=== PATIENT | female | born 1985 | race African-American/Black ===

== ENCOUNTER → 2016-12-17 | Outpatient (CLI) | payer BC ==
[~2016-12-17] MED LIST: PREN-39 PO; RANI150T9 PO
[2016-12-17 08:56] LABS: ADD SCAN DIFF NO
[2016-12-17 09:05] LABS: ADD UMIC YES; URINE BILIRUBIN (Dip) NEGATIVE (NEGATIVE); URINE BLOOD (Dip) 1+ (NEGATIVE); URINE COLOR YELLOW (YELLOW); URINE KETONES (Dip) NEGATIVE (NEGATIVE); URINE LEUKOCYTE ESTERASE (Dip) NEGATIVE (NEGATIVE); URINE NITRITE (Dip) NEGATIVE (NEGATIVE); URINE TOTAL PROTEIN (Dip) TRACE (NEGATIVE); URINE UROBILINOGEN (Dip) 0.2 E.U./dL (0.1-1.0)
[2016-12-17 09:06] LABS: BASOPHILS % 0.3 % (0.0-2.0); EOSINOPHILS # 0.1 10^3/ul (0.0-0.5); EOSINOPHILS % 1.5 % (0.0-7.0); HEMATOCRIT 31.8 % (37.0-47.0); HEMOGLOBIN 9.9 g/dl (12.0-16.0); LYMPHOCYTES # 1.6 10^3/ul (0.8-2.9); MEAN CORPUSCULAR HEMOGLOBIN 26.5 pg (29.0-33.0); MEAN CORPUSCULAR HGB CONC 31.1 g/dl (32.0-37.0); MEAN CORPUSCULAR VOLUME 85.3 fl (82.0-101.0); MEAN PLATELET VOLUME 11.1 fl (7.4-10.4); MONOCYTE # 0.6 10^3/ul (0.3-0.9); MONOCYTES % 10.1 % (0.0-11.0); NEUTROPHIL # 3.7 10^3/ul (1.6-7.5); NEUTROPHILS % 61.6 % (39.0-77.0); PLATELET COUNT 162 10^3/UL (140-415); RED BLOOD COUNT 3.73 10^6/ul (4.20-5.40)
[2016-12-17 09:26] LABS: BACTERIA,URINE MANY; MUCUS,URINE MANY
[2016-12-18 16:17] LABS: RUBELLA ANTIBODY - IGG 5.64 index
== END | disposition home or self-care (01) ==
LOC: LAB 07:53
PROVIDERS: ATTEND Obstetrics & Gynecology
DX: Z34.90 Encounter for supervision of normal pregnancy, unspecified, unspecified trimester (principal)
CPT/HCPCS: 81001; 84443; 85025; 86592; 86703; 86762; 86803; 86850; 86900; 86901; 87340

== ENCOUNTER → 2017-01-14 | Outpatient (CLI) | payer BC | END | disposition home or self-care (01) | LOC: LAB 07:37 | PROVIDERS: ATTEND Obstetrics & Gynecology | DX: Z32.00 Encounter for pregnancy test, result unknown (principal) | CPT/HCPCS: 87086 ==

== ENCOUNTER → 2017-03-30 | Outpatient (CLI) | payer BC ==
[2017-03-30 08:44] LABS: BASOPHILS % 0.1 % (0.0-2.0); EOSINOPHILS # 0.1 10^3/ul (0.0-0.5); EOSINOPHILS % 1.5 % (0.0-7.0); HEMATOCRIT 27.2 % (37.0-47.0); HEMOGLOBIN 8.6 g/dl (12.0-16.0); LYMPHOCYTES % 26.8 % (15.0-51.0); MEAN CORPUSCULAR HEMOGLOBIN 25.6 pg (29.0-33.0); MEAN CORPUSCULAR HGB CONC 31.6 g/dl (32.0-37.0); MEAN PLATELET VOLUME 11.1 fl (7.4-10.4); MONOCYTE # 0.7 10^3/ul (0.3-0.9); MONOCYTES % 8.9 % (0.0-11.0); NEUTROPHIL # 4.6 10^3/ul (1.6-7.5); PLATELET COUNT 153 10^3/UL (140-415); RED BLOOD COUNT 3.36 10^6/ul (4.20-5.40); RED CELL DISTRIBUTION WIDTH 15.6 % (11.5-14.5); WHITE BLOOD COUNT 7.3 10^3/ul (4.8-10.8)
== END | disposition home or self-care (01) ==
LOC: LAB 08:18
PROVIDERS: ATTEND Obstetrics & Gynecology
DX: Z34.82 Encounter for supervision of other normal pregnancy, second trimester (principal)
CPT/HCPCS: 82950; 85025

== ENCOUNTER 2017-04-03 14:34 | Outpatient (CLI) | payer BC ==
[~2017-04-03] VITALS: Ht 180.3 cm; Wt 84.5 kg
[2017-04-03 15:06] VITALS: BP 102/54; PULSE 88; Ht 180.3 cm; Wt 84.5 kg
[2017-04-03] MEDS ORDERED: ONDA-43 PO (15:08)
[2017-04-03] MEDS ORDERED: TERBUTALINE 1 MG/ML INJ SC PRN (15:30)
[2017-04-03 16:10] LABS: ADD UMIC YES; UR ASCORBIC ACID NEGATIVE (NEGATIVE); UR BILIRUBIN (Dip) NEGATIVE (NEGATIVE); UR BLOOD (Dip) 1+ mg/dL (NEGATIVE); UR CLARITY CLEAR (CLEAR); UR COLOR YELLOW (YELLOW); UR GLUCOSE (Dip) 1+ mg/dL (NEGATIVE); UR KETONES (Dip) NEGATIVE (NEGATIVE); UR LEUKOCYTE ESTERASE (Dip) NEGATIVE Leu/ul (NEGATIVE); UR MUCUS MODERATE /HPF (NONE SEEN); UR NITRITE (Dip) NEGATIVE (NEGATIVE); UR RBC 7 /HPF (0-5); UR SPECIFIC GRAVITY (Dip) 1.032 (1.003-1.030); UR SQUAMOUS EPITHELIAL CELL FEW /HPF (FEW); UR TOTAL PROTEIN (Dip) 2+ mg/dl (NEGATIVE); UR UROBILINOGEN (Dip) 2+ mg/dL (NEGATIVE)
--- NOTE | 2017-04-03 16:21 | RADRPT ---
PROCEDURE: OB ultrasound, limited CLINICAL INDICATION: distress. labor. TECHNIQUE: Color and vale-scale ultrasound images of an intrauterine gestation were obtained. COMPARISON: None FINDINGS: A single live intrauterine gestation is identified in cephalic position with an estimated hear t rate of 141 beats per minute. The placenta is located posteriorly and has a grade II. The cervix measures 3.6 cm in length and appears closed. No evidence of previa or abruption identified. PÉREZ is normal at 14.1 cm. IMPRESSION: Single live intrauterine gestation in cephalic position. Closed cervix measuring 3.6 cm in length. PÉREZ of 14.1 cm. RPTAT: AA .Chapincito Nguyen MD, Date Time Electronically viewed and signed by .Chapincito Nguyen MD, MD on 04/03/2017 16:21 .P/
--- NOTE | 2017-04-03 18:11 | PN ---
Triage Information Date/Time Reason for visit: Uterine contractions Weeks of Gestation 27w 5d /Para Objective Vital Signs Date Time Temp Pulse Resp B/P Pulse Ox O2 Delivery O2 Flow Rate FiO2 04/03/17 15:06 98.2 88 102/54 Heart Rate Comments reactive Contractions: None Exam FFN negative Results/Medications Results 24 hrs Laboratory Tests Test 04/03/17 15:00 Urine Color YELLOW Urine Clarity CLEAR Urine pH 5.0 Urine Specific Spray 1.032 H Urine Ketones NEGATIVE Urine Nitrite NEGATIVE Urine Bilirubin NEGATIVE Urine Urobilinogen 2+ H Urine Leukocyte Esterase NEGATIVE Urine Microscopic RBC 7 H Urine Microscopic WBC 1 Urine Squamous Epithelial Cells FEW Urine Mucus MODERATE Urine Hemoglobin 1+ H Urine Glucose 1+ H Urine Total Protein 2+ H Fibronectin NEGATIVE Medications Current Medications Terbutaline Sulfate (Brethine) 0.25 mg ONCE PRN SC PAIN; Start 04/03/17 at 15: 30; Stop 04/04/17 at 15:29 Imaging Results CL 3.6cm, PÉREZ 14.1cm Disposition: Discharge Assessment/Plan 31 y/o at 27w 5d with no e/o ptl -discharge home with ptl precautions -urine sent for cx -f/u with OB DIONISIO MÉNDEZ Apr 03, 2017 18:11
--- NOTE | 2017-04-03 18:24 | TRIAGE ---
OB Triage Datetime Report Generated by CPN: 04/03/2017 18:24 Datetime: 04/03/2017 17:53 Stage of : OB Triage Datetime: 04/03/2017 17:44 Stage of : OB Triage Datetime: 04/03/2017 17:17 Labor Evaluation Frequency: 0 Monitor Mode: External Resting Tone [place]: Relaxed Heart Rate FHR Baseline Rate: 135 Monitor Mode: External US Variability: Moderate 6-25 bpm Accelerations: 10X10 Decelerations: None Category: Category I Pain Assessment Pain Scale: 4 Pain Presence: Intermittent Pain Type: Cramping Pain Location: Abdomen Pain Goal: 3 Pain Relief Measures: Comfort Measures Datetime: 04/03/2017 16:19 Labor Evaluation Frequency: 0 Monitor Mode: External Resting Tone [place]: Relaxed Heart Rate FHR Baseline Rate: 135 Monitor Mode: External US Variability: Moderate 6-25 bpm Accelerations: 10X10 Decelerations: None Category: Category I Pain Assessment Pain Scale: 0 Pain Presence: None/Denies Pain Type: N/A Pain Goal: 3 Pain Relief Measures: Comfort Measures Datetime: 04/03/2017 15:17 Stage of : OB Triage Datetime: 04/03/2017 15:14 Stage of : OB Triage Datetime: 04/03/2017 14:55 Stage of : OB Triage Assessment Type: Triage Maternal Assessment Level of Consciousness: Fully Conscious DTR's/Clonus: DTRs 2+; No Clonus Headache: Denies Blurred Vision: No Respiratory Effort: Unlabored; Regular Rhythm; Equal Expansion Breath Sounds, Left: Clear and Equal Breath Sounds, Right: Clear and Equal Nausea/Vomiting: Denies RUQ Epigastric Pain: Denies Facial Edema: None Temperature Route: Axillary Fall Risk Assessment History of Falling: (0) No Secondary Diagnosis: (0) No Ambulatory Aid: (0) Bedrest/Nurse Assist IV Therapy: (0) No Gait: (0) Normal/Bedrest/Immobile Mental Status: (0) Oriented to Own Ability Fall Score: 0 Fall Risk Score Definition: No Risk: No action required Labor Evaluation Frequency: 0 Monitor Mode: External Pattern: Normal: <= 5 Contractions in 10 Minutes Resting Tone [place]: Relaxed Heart Rate FHR Baseline Rate: 135 Monitor Mode: External US Variability: Moderate 6-25 bpm Decelerations: None Pain Assessment Pain Scale: 6 Pain Presence: Intermittent Pain Type: Cramping Pain Location: Abdomen Pain Goal: 3 Pain Relief Measures: Comfort Measures Datetime: 04/03/2017 14:53 Time of Arrival: 04/03/2017 14:32 EGA: 27.5 Arrived By: Ambulatory Arrived From: Home Chief Complaint: C/O UC'S SINCE 12, DENIES LEAKING OF FLUID OR BLEEDING Movement: Present Contractions: Irregular Rupture of Membranes: Denies Vaginal Bleeding: None Vaginal Discharge: Denies Recent Sexual Intercouse: Denies Abdominal Trauma: Not Applicable Patient Complaints: Cramping Time Provider Notified: 04/03/2017 15:17 Provider Notified: LOLA Initial Plan: MONITOR, U/A, BPP, CL, FFN, TERB PRN
== END 2017-04-03 18:20 | disposition home or self-care (01) ==
LOC: OBT 14:34 → L-D 14:39 → OBT 18:20
PROVIDERS: ATTEND Obstetrics & Gynecology
DX: O62.9 Abnormality of forces of labor, unspecified (principal); Z3A.27 27 weeks gestation of pregnancy
CPT/HCPCS: 76817; 76818; 81001; 82731; 87086; G0463

== ENCOUNTER 2017-06-27 20:12 | Outpatient (CLI) | END 2017-06-27 21:05 | disposition home or self-care (01) ==

== ENCOUNTER 2017-06-28 02:38 | Inpatient (IN) | payer BC ==
[~2017-06-28] VITALS: Ht 180.3 cm; Wt 90.8 kg
[~2017-06-28 02:38] MED LIST changes: +ONDA-43 PO
[2017-06-28 02:46] VITALS: BP 113/62; PULSE 58; RESP 18
[2017-06-28] MEDS ORDERED: LACTATED RINGER'S 1,000 ML IV PRN (02:48)
[2017-06-28] MEDS ORDERED: LACTATED RINGER'S 1,000 ML IV SCH (02:48)
[2017-06-28 02:50] VITALS: Ht 180.3 cm; Wt 90.8 kg
[2017-06-28] MEDS ORDERED: IBUPROFEN 600 MG TAB PO PRN (03:00)
[2017-06-28] MEDS ORDERED: METHYLERGONOVINE 0.2 MG INJ IM PRN ×2 (03:00→07:30)
[2017-06-28] MEDS ORDERED: OXYTOCIN 30 UNITS/LR 500 ML IV PRN ×2 (03:00→07:30)
[2017-06-28] MEDS ORDERED: HYDROCODONE/APAP (5/325) TAB PO PRN ×2 (03:00→07:30)
[2017-06-28] MEDS ORDERED: OXYCODONE/ACETAMINOPHEN (5/325) TAB PO PRN (03:00)
[2017-06-28] MEDS ORDERED: CARBOPROST 250 MCG INJ IM PRN ×2 (03:00→07:30)
[2017-06-28] MEDS ORDERED: LIDOCAINE 1% (MPF) 30 ML INJ INJ PRN (03:00)
[2017-06-28] MEDS ORDERED: OXYTOCIN 30 UNITS/LR 500 ML IV SCH ×4 (03:00→07:04)
[2017-06-28] MEDS ORDERED: MISOPROSTOL 200 MCG TAB PR PRN ×2 (03:00→07:30)
[2017-06-28 03:13] LABS: BASOPHILS % 0.3 % (0.0-2.0); EOSINOPHILS # 0.1 10^3/ul (0.0-0.5); EOSINOPHILS % 1.1 % (0.0-7.0); HEMATOCRIT 36.2 % (37.0-47.0); HEMOGLOBIN 11.6 g/dl (12.0-16.0); LYMPHOCYTES # 1.7 10^3/ul (0.8-2.9); LYMPHOCYTES % 27.2 % (15.0-51.0); MEAN CORPUSCULAR HEMOGLOBIN 27.4 pg (29.0-33.0); MEAN CORPUSCULAR VOLUME 85.6 fl (82.0-101.0); MEAN PLATELET VOLUME 11.2 fl (7.4-10.4); MONOCYTE # 0.7 10^3/ul (0.3-0.9); NEUTROPHIL # 3.6 10^3/ul (1.6-7.5); NEUTROPHILS % 59.1 % (39.0-77.0); PLATELET COUNT 148 10^3/UL (140-415); RED BLOOD COUNT 4.23 10^6/ul (4.20-5.40); RED CELL DISTRIBUTION WIDTH 17.9 % (11.5-14.5); WHITE BLOOD COUNT 6.2 10^3/ul (4.8-10.8)
[2017-06-28] MEDS ORDERED: AMPICILLIN 2 GM/NS (PMX) 100 ML ONE (03:14)
[2017-06-28] MEDS ORDERED: AMPICILLIN 2 GM/NS (PMX) 100 ML IV ONE (03:30)
[2017-06-28 03:31] LABS: INR 0.94; PROTIME 12.7 Sec (11.9-14.9)
[2017-06-28 03:32] LABS: PARTIAL THROMBOPLASTIN TIME 27.6 Sec (25.0-35.0)
[2017-06-28] MEDS: BUTORPHANOL 2 MG INJ IV PRN ×2 (03:32→05:33)
[2017-06-28] MEDS ORDERED: AMPICILLIN ONE (05:42)
[2017-06-28] MEDS ORDERED: SODIUM CHLORIDE ONE (05:42)
[2017-06-28] MEDS: LACTATED RINGER'S 1,000 ML IV* SCH ×3 (07:04→23:04)
--- NOTE | 2017-06-28 07:11 | LDN ---
Date/Time of Note Date/Time of Note DATE: 06/28/17 TIME: 07:08 Delivery Summary of a viable baby girl weighing 3250 grams or 7# 3 oz, 19.5" long, and with Apgars of 9/9. Weeks of Gestation 40w Placenta Delivered: Spontaneously Meconium: none Episiotomy: No Perineal laceration: 1 Laceration repair: First degree perineal and b/l labial lacerations repaired with 3-0 chromic. Anesthesia type: None Estimated blood loss: 150 Sponge & Needle done & correct: Yes All needle counts correct: Yes Any foreign bodies felt in the: No (vagina) Problems: Infant Delivery Information Sex Sex: female Apgars 1 Minute: 9 5 Minute: 9 Suctioning Nose & mouth suctioned at jaleesa: No Delee suction performed: No Umbilical Cord Umbilical cord with: 3 Vessels Cord presentations: no nuchal cord Cord Blood was obtained: Yes Mother & Baby Disposition Disposition Mom & Baby to Maternity; Good: Yes Baby to NICU: No ANSHUL DAVILA MD Jun 28, 2017 07:11
--- NOTE | 2017-06-28 07:14 | HP ---
Date/Time of Note Date/Time of Note DATE: 06/28/17 TIME: 07:11 OB - History Hx of Present Free Text/Dictation 31 y.o. with an IUP at 40 weeks came in labor and was 5 cm dilated. She had been in 5 hours earlier and was 3 cm at that time but had decided to go home. Estimated Due Date: Jun 28, 2017 : 2 Para: 1 Care: Good Care Ultrasounds: Normal mid trimester US Obstetrical Complications: None Medical Complications: None Past Family/Social History * Past Medical, Surgical, Family and Obstetric Histories reviewed from chart. Blood Type: B+ Rubella: immune RPR/VDRL: Negative GBS Status: Positive HBsAG: Negative OB Admission Exam Vital Signs Vital Signs Vital Signs Date Time Temp Pulse Resp B/P Pulse Ox O2 Delivery O2 Flow Rate FiO2 06/28/17 02:46 98.2 58 18 113/62 Room Air Physical Exam HEENT: WNL Heart: Rhythm Normal Lungs: Clear Abdomen: WNL Extremities: Normal Reflexes: Normal Cervical Dilatation: 5cm Effacement: 100% Station: -1 Membranes: Intact Amniotic Fluid: Clear Heart Rate: 130's Accelerations: Accelerations Present Decelerations: No Decelerations Varibility: Moderate Contractions on Admission: < 5 Minutes Apart Last 72 hours Lab Results CBC & BMP 06/28/17 02:55 OB Assessment/Plan Reason for admission: active labor Plan: Expectant Management Other plan: Pitocin as needed. Antibiotic GBS prophylaxis. ANSHUL DAVILA MD Jun 28, 2017 07:14
[2017-06-28] MEDS ORDERED: AMPICILLIN 1 GM/NS (PMX) 50 ML IV SCH (07:30)
[2017-06-28 09:15] VITALS: BP 117/58; PULSE 60; RESP 19
[2017-06-28] MEDS: IBUPROFEN 600 MG TAB PO SCH ×3 (11:44→23:58)
[2017-06-28] MEDS: LANOLIN 7 GM TUBE TOP PRN (11:45)
[2017-06-28 12:54] VITALS: BP 115/55; PULSE 59; RESP 18
[2017-06-28 16:00] VITALS: BP 112/63; PULSE 66; RESP 16
[2017-06-28 16:35] VITALS: BP 112/63; RESP 16
[2017-06-28 19:40] VITALS: BP 118/73; PULSE 70; RESP 19
[2017-06-29] MEDS: IBUPROFEN 600 MG TAB PO SCH ×4 (05:45→23:35)
[2017-06-29] MEDS: LACTATED RINGER'S 1,000 ML IV* SCH (07:04)
[2017-06-29 07:40] VITALS: BP 115/60; PULSE 65; RESP 16
[2017-06-29 09:03] LABS: BASOPHILS % 0.2 % (0.0-2.0); EOSINOPHILS # 0.1 10^3/ul (0.0-0.5); EOSINOPHILS % 1.1 % (0.0-7.0); HEMATOCRIT 34.2 % (37.0-47.0); HEMOGLOBIN 10.7 g/dl (12.0-16.0); LYMPHOCYTES # 1.9 10^3/ul (0.8-2.9); LYMPHOCYTES % 21.9 % (15.0-51.0); MEAN CORPUSCULAR HEMOGLOBIN 27.4 pg (29.0-33.0); MEAN CORPUSCULAR HGB CONC 31.3 g/dl (32.0-37.0); MEAN CORPUSCULAR VOLUME 87.7 fl (82.0-101.0); MEAN PLATELET VOLUME 11.7 fl (7.4-10.4); MONOCYTE # 0.7 10^3/ul (0.3-0.9); MONOCYTES % 8.8 % (0.0-11.0); NEUTROPHIL # 5.7 10^3/ul (1.6-7.5); NEUTROPHILS % 67.6 % (39.0-77.0); PLATELET COUNT 141 10^3/UL (140-415); RED CELL DISTRIBUTION WIDTH 17.8 % (11.5-14.5); WHITE BLOOD COUNT 8.4 10^3/ul (4.8-10.8)
[2017-06-29] MEDS ORDERED: INFLUENZA VIRUS VACCINE 0.5 ML SYG IM* ONE (13:00)
[2017-06-29 15:57] VITALS: BP 114/71; PULSE 64; RESP 17
[2017-06-29 19:20] VITALS: BP 118/70; PULSE 62; RESP 18
[2017-06-29] MEDS: SENNA/DOCUSATE NA (8.6MG/50MG) TAB PO SCH (21:00)
--- NOTE | 2017-06-30 00:43 | QN ---
Documentation Comment Progress Note for 06/29/17 PPD #1 No c/o. w/o a problem. T=99 BP 118/70 Fundus is firm. Lochia minimal. Ext NT, 1+ edema. WBC 8.4 Hgb 10.7. Plts 141K P: continue care. Plan d/c 06/30. ANSHUL DAVILA MD Jun 30, 2017 00:43
[2017-06-30 03:55] VITALS: BP 121/79; PULSE 71; RESP 18
[2017-06-30] MEDS: IBUPROFEN 600 MG TAB PO SCH ×2 (05:36→11:11)
[2017-06-30 07:50] VITALS: BP 129/75; PULSE 52; RESP 16
[2017-06-30] MEDS: SENNA/DOCUSATE NA (8.6MG/50MG) TAB PO SCH (08:57)
[2017-06-30] MEDS ORDERED: DIPHTH/TET/ACEL PERTUSS (ADULT) 0.5 ML VIAL IM* ONE (09:00)
[2017-06-30] MEDS: LANOLIN 7 GM TUBE TOP PRN (11:24)
[2017-06-30] MEDS ORDERED: WITCH HAZEL/GLYCERIN PAD PR PRN (11:30)
[2017-06-30] MEDS ORDERED: BENZOCAINE 20% 56 ML SPRAY TOP PRN (11:30)
--- NOTE | 2017-06-30 12:21 | PD.PPDC ---
SPEECH CLINICIAN Discharge Instruction Condition Patient Condition: Good Diet Diet: Resume Regular Diet Activity/Restrictions Activity: Normal Activity May Shower Restrictions: No Sexual Activity Nothing in the Vagina No [place] No Tampons, douche Follow-up Follow-up with Physician: 6, Week/Weeks Return to clinic for FRAME FEEDER Instructions: Fever greater than 101 Chills Worsening abdominal pain Excessive Vaginal Bleeding OB Instructions: Breast Tenderness Depression ANSHUL DAVILA MD Jun 30, 2017 12:21
--- NOTE | 2017-06-30 12:22 | DS ---
Date/Time of Note Date/Time of Note DATE: 06/30/17 TIME: 12:21 Obstetrical Discharge Record Final Diagnosis Final Diagnosis: Term delivered Vaginal Delivery Obstetrical Delivery: Spontaneous Complications Augmentation: No Induction: No Condition on Discharge Physical Assessment Last Vitals: T=98.2 BP 129/75 Voiding: Yes Bowel Movement: Yes Breast: Soft, non-tender Fundus: Firm Calf Tenderness: No Patient Condition: Good ANSHUL DAVILA MD Jun 30, 2017 12:22
== END 2017-06-30 15:21 | disposition home or self-care (01) | DRG 775 ==
LOC: EDSTATUS 02:38 → L-D 02:40 → PP1 09:49
PROVIDERS: ADMIT Obstetrics & Gynecology; ATTEND Obstetrics & Gynecology
PROC: 10E0XZZ Delivery of Products of Conception, External Approach (ICD-10-PCS; principal; 2017-06-28)
PROC: 0HQ9XZZ Repair Perineum Skin, External Approach (ICD-10-PCS; 2017-06-28)
PROC: 3E033VJ Introduction of Other Hormone into Peripheral Vein, Percutaneous Approach (ICD-10-PCS; 2017-06-28)
DX: O48.0 Post-term pregnancy (principal); O70.0 First degree perineal laceration during delivery; Z3A.40 40 weeks gestation of pregnancy; Z37.0 Single live birth
CPT/HCPCS: 85025; 85610; 85730; 86592; 86850; 86900; 86901; 87340; 90686; 90715; J0290; J0595; J2590; J7120

== ENCOUNTER → 2018-07-16 | Outpatient (CLI) | payer BC | END | disposition home or self-care (01) | LOC: LAB 07:41 | PROVIDERS: ATTEND Obstetrics & Gynecology | DX: Z32.00 Encounter for pregnancy test, result unknown (principal) | CPT/HCPCS: 81001; 84443; 85025; 86592; 86703; 86762; 86803; 86850; 86900; 86901; 87340 ==

== ENCOUNTER → 2018-10-27 | Outpatient (CLI) | payer BC | END | disposition home or self-care (01) | LOC: LAB 02:14 | PROVIDERS: ATTEND Obstetrics & Gynecology | DX: O24.419 Gestational diabetes mellitus in pregnancy, unspecified control (principal); Z3A.00 Weeks of gestation of pregnancy not specified | CPT/HCPCS: 82950; 85025 ==

== ENCOUNTER 2019-01-15 05:57 | Inpatient (IN) | payer BC ==
[~2019-01-15] VITALS: Ht 180.3 cm; Wt 93.3 kg
[2019-01-15] MEDS ORDERED: RANI150T35 PO (06:16)
[2019-01-15] MEDS ORDERED: ONDA4TAB8 PO (06:16)
[2019-01-15] MEDS ORDERED: PREN-93 PO (06:16)
[2019-01-15 06:17] VITALS: BP 118/74; PULSE 94; RESP 18; Ht 180.3 cm; Wt 93.3 kg
[2019-01-15] MEDS ORDERED: LACTATED RINGER'S 1,000 ML IV SCH (08:24)
[2019-01-15] MEDS ORDERED: LIDOCAINE 1% (MPF) 30 ML INJ INJ PRN (08:30)
[2019-01-15] MEDS ORDERED: OXYTOCIN 30 UNITS/LR 500 ML IV PRN ×2 (08:30→17:30)
[2019-01-15] MEDS ORDERED: CARBOPROST 250 MCG INJ IM PRN ×2 (08:30→17:30)
[2019-01-15] MEDS ORDERED: MISOPROSTOL 200 MCG TAB PR PRN ×2 (08:30→17:30)
[2019-01-15] MEDS ORDERED: IBUPROFEN 600 MG TAB PO PRN (08:30)
[2019-01-15] MEDS ORDERED: METHYLERGONOVINE 0.2 MG INJ IM PRN ×2 (08:30→17:30)
[2019-01-15] MEDS ORDERED: AMPICILLIN 2 GM/NS (PMX) 100 ML IV ONE (08:30)
[2019-01-15] MEDS ORDERED: BUTORPHANOL 2 MG INJ IV PRN (08:30)
[2019-01-15] MEDS ORDERED: OXYTOCIN 30 UNITS/LR 500 ML IV SCH ×3 (08:30→12:00)
--- NOTE | 2019-01-15 08:40 | TRIAGE ---
OB Triage Datetime Report Generated by CPN: 01/15/2019 08:40 Datetime: 01/15/2019 08:16 Maternal Assessment Level of Consciousness: Keenly Alert, Responsive DTR's/Clonus: DTRs 2+ Headache: Denies Blurred Vision: No Nausea/Vomiting: Denies RUQ Epigastric Pain: Denies Facial Edema: None Labor Evaluation Frequency: 6-8 Monitor Mode: External Duration (sec)2399: 60 Quality: Moderate Pattern: Normal: <= 5 Contractions in 10 Minutes Resting Tone [place]: Relaxed Heart Rate FHR Baseline Rate: 150 Monitor Mode: External US FHR Baseline Changes: No Baseline Change Variability: Moderate 6-25 bpm Accelerations: 15X15 Decelerations: None Category: Category I Pain Assessment Pain Scale: 6 Pain Presence: Intermittent Pain Type: Contraction Pain Location: Abdomen Pain Goal: 5 Vaginal Exam Dilatation (cms): 5.0 Effacement (%): 80 Station: -2 Exam By: martha hutchins Membrane Status: Intact Vaginal Bleeding: None Cervix, Consistency: Soft Cervix, Position: Midposition Datetime: 01/15/2019 07:55 Assessment Type: Admission Assessment Vaginal Bleeding: None Maternal Assessment Level of Consciousness: Keenly Alert, Responsive DTR's/Clonus: DTRs 2+; No Clonus Headache: Denies Blurred Vision: No Respiratory Effort: Unlabored; Regular Rhythm; Equal Expansion Breath Sounds, Left: Clear and Equal Breath Sounds, Right: Clear and Equal Nausea/Vomiting: Denies RUQ Epigastric Pain: Denies Lower Extremities Edema: None Degree: None Upper Extremities Edema: None Degree: None Facial Edema: None Fall Risk Assessment History of Falling: (0) No Secondary Diagnosis: (0) No Ambulatory Aid: (0) Bedrest/Nurse Assist IV Therapy: (0) No Gait: (0) Normal/Bedrest/Immobile Mental Status: (0) Oriented to Own Ability Fall Score: 0 Fall Risk Score Definition: No Risk: No action required Labor Evaluation Frequency: 6-8 Duration (sec)2399: 60-70 Quality: Moderate Pattern: Normal: <= 5 Contractions in 10 Minutes Resting Tone [place]: Relaxed Heart Rate FHR Baseline Rate: 135 Variability: Moderate 6-25 bpm Accelerations: 15X15 Decelerations: None Category: Category I Pain Assessment Pain Scale: 6 Pain Presence: Intermittent Pain Type: Contraction Pain Location: Abdomen Pain Goal: 3 Vaginal Exam Dilatation (cms): 4.0 Effacement (%): 60 Station: -2 Membrane Status: Intact Amniotic Fluid Odor: None Datetime: 01/15/2019 07:01 Labor Evaluation Frequency: 8-9 Monitor Mode: External Duration (sec)2399: 60 Quality: Moderate Pattern: Normal: <= 5 Contractions in 10 Minutes Resting Tone [place]: Relaxed Heart Rate FHR Baseline Rate: 130 Monitor Mode: External US FHR Baseline Changes: No Baseline Change Variability: Moderate 6-25 bpm Accelerations: 15X15 Decelerations: None Category: Category I Pain Assessment Pain Scale: 6 Pain Presence: Intermittent Pain Type: Contraction Pain Location: Abdomen Pain Goal: 6 Membrane Status: Intact Datetime: 01/15/2019 07:00 Labor Evaluation Frequency: IRREG Monitor Mode: External Duration (sec)2399: 50-130 Quality: Mild Pattern: Normal: <= 5 Contractions in 10 Minutes Resting Tone [place]: Relaxed Heart Rate FHR Baseline Rate: 135 Variability: Moderate 6-25 bpm Accelerations: 15X15 Decelerations: None Category: Category I Datetime: 01/15/2019 06:12 Assessment Type: Triage Maternal Assessment Level of Consciousness: Keenly Alert, Responsive DTR's/Clonus: DTRs 2+; No Clonus Headache: Denies Blurred Vision: No Respiratory Effort: Unlabored; Regular Rhythm; Equal Expansion Breath Sounds, Left: Clear and Equal Breath Sounds, Right: Clear and Equal Nausea/Vomiting: Denies RUQ Epigastric Pain: Denies Lower Extremities Edema: None Degree: None Upper Extremities Edema: None Degree: None Facial Edema: None Fall Risk Assessment History of Falling: (0) No Secondary Diagnosis: (0) No Ambulatory Aid: (0) Bedrest/Nurse Assist IV Therapy: (0) No Gait: (0) Normal/Bedrest/Immobile Mental Status: (0) Oriented to Own Ability Fall Score: 0 Fall Risk Score Definition: No Risk: No action required Datetime: 01/15/2019 06:10 Time of Arrival: 01/15/2019 05:49 EGA: 39.1 Arrived By: Ambulatory Arrived From: Home Chief Complaint: ucs Movement: Present Contractions: Irregular Time Contractions Began: 01/15/2019 03:30 Contractions: 8-10 min Rupture of Membranes: Denies Vaginal Bleeding: None Vaginal Discharge: Denies Recent Sexual Intercouse: Denies Abdominal Trauma: Not Applicable Patient Complaints: Contractions Time Provider Notified: 01/15/2019 06:57 Provider Notified: JOSE GUADALUPE Initial Plan: NST, SVE Datetime: 01/15/2019 06:06 Pain Assessment Pain Scale: 7 Pain Presence: Intermittent Pain Type: Contraction Pain Location: Abdomen Pain Goal: 7 Pain Relief Measures: Comfort Measures Pain Assessment Comments: STATES PAIN IS TOLERABLE
[2019-01-15] MEDS: BUTORPHANOL 2 MG INJ IV PRN ×2 (09:16→12:40)
[2019-01-15] MEDS ORDERED: AMPICILLIN 1 GM/NS (PMX) 50 ML IV SCH (12:30)
--- NOTE | 2019-01-15 13:53 | PREAC ---
Date/Time of Note Date/Time of Note DATE: 01/15/19 TIME: 13:52 Anesthesia Eval and Record Evaluation Time Pre-Procedure Interview DATE: 01/15/19 TIME: 13:52 Age 33 Sex female NPO: 8 hrs Preoperative diagnosis intrauterine Planned procedure labor epidural Past Medical History Past Medical History: Includes Heme: Anemia : Gestational age: (39+) Surgery & Anesthesia Issues No known issue Meds Anticoagulation: No Beta Alexa within 24 hr: No Reason Beta Alexa not given: Pt. not on B-Alexa Reported Medications Ondansetron Hcl* (Zofran*) 4 Mg Tablet, 4 MG PO DAILY, TAB 01/15/19 Ranitidine Hcl* (Zantac*) 150 Mg Tablet, 150 MG PO HS, #30 TAB 01/15/19 Vit No.124/Iron/FA ( Vitamin Tablet) 1 Each Tablet, 1 EACH PO DAILY, TAB 01/15/19 Current Medications Lactated Ringer's 1,000 ml @ 125 mls/hr Q8H IV Last administered on 01/15/19at 08:42; Admin Dose 125 MLS/HR; Start 01/15/19 at 08:24 Ampicillin 50 ml @ 100 mls/hr Q4H IV Last administered on 01/15/19at 13:02; Admin Dose 100 MLS/HR; Start 01/15/19 at 12:30 Butorphanol Tartrate (Stadol) 1 mg Q2H PRN IV .PAIN SCALE 1-5 Last administered on 01/15/19at 12:40; Admin Dose 2 MG; Start 01/15/19 at 08:30 Butorphanol Tartrate (Stadol) 2 mg Q2H PRN IV .PAIN SCALE 6-10; Start 01/15/19 at 08:30 Lidocaine (Xylocaine 1% (Mpf)) 30 ml ONCE PRN INJ .EPISIOTOMY; Start 01/15/19 at 08:30 Oxytocin/Lactated Ringer's 500 ml @ 500 mls/hr ONCE POST IV ; Start 01/15/19 at 08:30 Oxytocin/Lactated Ringer's 500 ml @ 125 mls/hr POST IV ; Start 01/15/19 at 08:30 Ibuprofen (Motrin) 600 mg ONCE PRN PO .PAIN 1-5; Start 01/15/19 at 08:30 Oxytocin/Lactated Ringer's 500 ml @ 0 mls/hr ONCE PRN IV .VAGINAL BLEEDING; Start 01/15/19 at 08:30 Methylergonovine Maleate (Methergine) 0.2 mg ONCE PRN IM .VAGINAL BLEEDING; Start 01/15/19 at 08:30 Carboprost Tromethamine (Hemabate) 250 mcg ONCE PRN IM .VAGINAL BLEEDING; Start 01/15/19 at 08:30 Misoprostol (Cytotec) 1,000 mcg ONCE PRN LA .VAGINAL BLEEDING; Start 01/15/19 at 08:30 Oxytocin/Lactated Ringer's 500 ml @ 0 mls/hr Q0M IV Last administered on 01/15/19at 12:04; Admin Dose 1 MLS/HR; Start 01/15/19 at 12:00 Meds reviewed: Yes Allergies Coded Allergies: No Known Allergy (Unverified , 01/15/19) Allergies Reviewed: Yes Labs/Studies Labs Reviewed: Reviewed by anesthesiologist Result Diagram: 01/15/19 0720 Laboratory Tests 01/15/19 07:20 Blood Bank Test 01/15/19 07:20 Antibody Screen NEGATIVE Blood Type B POSITIVE Rh Immune Globulin Candidate NO test: N/A Pre-procedure Exam Last vitals Vital Signs Date Temp Pulse Resp B/P (MAP) Pulse Ox O2 O2 Flow FiO2 Time Delivery Rate 01/15/19 98.1 94 18 118/74 Room Air 06:17 (89) Airway: Adequate mouth opening, Adequate thyromental dist Mallampati: Mallampati II Teeth: Normal Lung: Normal Heart: Normal ASA Physical Status ASA physical status: 2 Emergency: None Planned Anesthetic Neuraxial: Epidural Planned Pain Management Epidural, Parenteral pain med Pre-operative Attestations Prior to commencing anesthesia and surgery, the patient was re-evaluated, there was verification of: *The patient's identity *The results of appropriate recent lab work and preoperative vital signs *The above evaluation not changing prior to induction *Anesthetic plan, risk benefits, alternative and complications discussed with patient/family; questions answered; patient/family understands, accepts and wishes to proceed. SFAIA VEGA MD Jan 15, 2019 13:53
[2019-01-15] MEDS ORDERED: DIPHENHYDRAMINE 50 MG INJ IV PRN (14:00)
[2019-01-15] MEDS ORDERED: ONDANSETRON 4 MG INJ IV PRN (14:00)
[2019-01-15] MEDS ORDERED: FENTAnyl 2MCG/ML-ROPIV 0.2% 100 ML BAG EPI SCH (14:00)
[2019-01-15] MEDS ORDERED: NALOXONE (0.4 MG/ML) INJ IV PRN (14:00)
--- NOTE | 2019-01-15 15:38 | LDN ---
Date/Time of Note Date/Time of Note DATE: 01/15/19 TIME: 15:35 Delivery Summary of normal male 8lb5oz Weeks of Gestation 39w1d Placenta Delivered: Spontaneously, Intact & Complete Meconium: none Episiotomy: No Perineal laceration: 1 Laceration repair: 000 ch gut Anesthesia type: Local Estimated blood loss: 100 Sponge & Needle done & correct: Yes All needle counts correct: Yes Any foreign bodies felt in the: No Infant Delivery Information Sex Infant Sex: male Apgars 1 Minute: 9 5 Minute: 9 10 Minute: 0 Suctioning Nose & mouth suctioned at jaleesa: Yes Delee suction performed: Yes Umbilical Cord Umbilical cord with: 3 Vessels Cord presentations: no nuchal cord Nuchal cord present X: 0 Cord Blood was obtained: Yes Mother & Baby Disposition Disposition Mom & Baby to Maternity; Good: Yes Mom transferred to: Other Baby to NICU: No (postpatum) ERMA SHI MD Jan 15, 2019 15:38
--- NOTE | 2019-01-15 15:45 | HP ---
Date/Time of Note Date/Time of Note DATE: 01/15/19 TIME: 15:38 OB - History Hx of Present Free Text/Dictation 33 y.o at 39w1d in labor with UC's 4-10 apart . had unevenful course. initial VE 4cm, then recked after ambulat become 5cm CAT I tracing GBS positive admitted for expectant management.with GBS prophylaxis. Chief Complaint: uc's Estimated Due Date: Jan 21, 2019 : 3 Para: 2 Spontaneous : 0 Therapeutic : 0 Care: Good Care Ultrasounds: Normal mid trimester US Obstetrical Complications: None Medical Complications: None Past Family/Social History * Past Medical, Surgical, Family and Obstetric Histories reviewed from chart. Blood Type: B+ Rubella: immune RPR/VDRL: Negative GBS Status: Positive HBsAG: Negative OB Admission Exam Vital Signs Vital Signs Vital Signs Date Temp Pulse Resp B/P (MAP) Pulse Ox O2 O2 Flow FiO2 Time Delivery Rate 01/15/19 98.1 94 18 118/74 Room Air 06:17 (89) Physical Exam HEENT: WNL Heart: Rhythm Normal Lungs: Clear, Equal Abdomen: WNL Extremities: Normal Reflexes: Normal Cervical Dilatation: 5cm Effacement: Other (80%) Station: -2 Membranes: Intact Amniotic Fluid: Unevaluable Heart Rate: 140's Accelerations: Accelerations Present Decelerations: No Decelerations Varibility: Moderate Contractions on Admission: < 5 Minutes Apart Intensity: Moderate Last 72 hours Lab Results CBC & BMP 01/15/19 07:20 OB Assessment/Plan Reason for admission: active labor Other Assessment: IUP 39w1d Plan: Expectant Management ERMA SHI MD Jan 15, 2019 15:45
[2019-01-15 17:00] VITALS: BP 127/66; PULSE 58; RESP 18
[2019-01-15] MEDS ORDERED: ZOLPIDEM 5 MG TAB PO PRN (17:30)
[2019-01-15] MEDS ORDERED: OXYCODONE/ASPIRIN (4.88/325) TAB PO PRN ×2 (17:30)
[2019-01-15] MEDS ORDERED: LANOLIN HPA 1 PKT TOP PRN (17:30)
[2019-01-15] MEDS ORDERED: BENZOCAINE 20% 56 ML SPRAY TOP PRN (17:30)
[2019-01-15] MEDS ORDERED: WITCH HAZEL/GLYCERIN PAD PR PRN (17:30)
[2019-01-15] MEDS: IBUPROFEN 600 MG TAB PO SCH ×2 (17:56→23:38)
[2019-01-15 18:00] VITALS: BP 116/58; PULSE 65; RESP 20
[2019-01-15 19:30] VITALS: BP 123/63; PULSE 75; RESP 19
[2019-01-15] MEDS: SENNA/DOCUSATE NA (8.6MG/50MG) TAB PO SCH (20:44)
[2019-01-15] MEDS: LACTATED RINGER'S 1,000 ML IV SCH (21:24)
[2019-01-16] VITALS (7 sets, daily range): BP systolic 112–131; BP diastolic 57–76; PULSE 65–86; RESP 16–19
[2019-01-16] MEDS: LACTATED RINGER'S 1,000 ML IV SCH ×3 (05:00→21:00)
[2019-01-16] MEDS: IBUPROFEN 600 MG TAB PO SCH ×4 (05:55→23:33)
[2019-01-16] MEDS: SENNA/DOCUSATE NA (8.6MG/50MG) TAB PO SCH ×2 (08:42→21:15)
--- NOTE | 2019-01-16 18:40 | PN ---
Date/Time of Note Date/Time of Note DATE: 01/16/19 TIME: 18:38 OB Subjective Subjective Subjective no c/o no b.m yet wants baby circumcised OB Objective Objective Objective vss afebrile fundus firm lochia min calf neg for tenderness OB Assessment/Plan Other Assessment: stable post anemia Plan: Other (iron supplement) ERMA SHI MD Jan 16, 2019 18:40
[2019-01-16] MEDS: FERROUS GLUCONATE (EC) 325 MG TAB PO SCH (21:15)
[2019-01-17 03:45] VITALS: BP 101/58; PULSE 71; RESP 18
[2019-01-17] MEDS: LACTATED RINGER'S 1,000 ML IV SCH (05:00)
[2019-01-17] MEDS: IBUPROFEN 600 MG TAB PO SCH ×3 (05:46→17:32)
[2019-01-17 07:35] VITALS: BP 118/59; PULSE 71; RESP 16
[2019-01-17] MEDS ORDERED: DIPHTH/TET/ACEL PERTUSS (ADULT) 0.5 ML VIAL IM* ONE (09:00)
[2019-01-17] MEDS: FERROUS GLUCONATE (EC) 325 MG TAB PO SCH (09:19)
[2019-01-17] MEDS: SENNA/DOCUSATE NA (8.6MG/50MG) TAB PO SCH (09:19)
--- NOTE | 2019-01-17 15:40 | PD.PPDC ---
GEOSPATIAL SPECIALIST Discharge Instruction Condition [id number] Patient Condition: Ndcsl0s Good Diet [id number] Diet: Xdoml8n Resume Regular Diet Activity/Restrictions [id number] Activity: [id number] Normal Activity May Shower Pluln5Es Restrictions: [id number] No Sexual Activity Nothing in the Vagina No [place] No Tampons, douche Follow-up Follow-up with Physician: 6, Week/Weeks Return to clinic for [id number] PIECE WORK CHECKER Instructions: Hysja0l Fever greater than 101 Chills Worsening abdominal pain Excessive Vaginal Bleeding [id number] OB Instructions: Qapiy7f Breast Tenderness Depression ANSHUL DAIVLA MD Jan 17, 2019 15:40
[2019-01-17 16:08] VITALS: BP 131/77; PULSE 68; RESP 20
--- NOTE | 2019-01-17 19:43 | DS ---
Date/Time of Note Date/Time of Note DATE: 01/17/19 TIME: 19:42 Obstetrical Discharge Record Final Diagnosis Final Diagnosis: Term delivered Vaginal Delivery Obstetrical Delivery: Spontaneous Complications Augmentation: No Induction: No Rupture of Membranes: No Condition on Discharge Physical Assessment Last Vitals: 98.6 BP 118/59 Voiding: Yes Bowel Movement: Yes Breast: Filling Fundus: Firm Calf Tenderness: No Patient Condition: Good ANSHUL DAVILA MD Jan 17, 2019 19:43
--- NOTE | 2019-01-18 18:11 | DELSUM ---
Delivery Summary A-C Datetime Report Generated by CPN: 01/18/2019 18:11 DELIVERY PERSONNEL Gl Accountant: Jakub, Nessa MATERNAL INFORMATION Delivery Anesthesia: Local Delivery QBL (ml): 100 Placenta Cultured: No Maternal Complications: None LABOR SUMMARY EDC: 01/21/2019 00:00 No. Babies in Womb: 1 Attempted: No Labor Anesthesia: IV Sedation LABOR INFORMATION Reason for Induction: Not Applicable Onset of Labor: 01/15/2019 03:30 Complete Dilatation: 01/15/2019 14:00 Group B Beta Strep: Positive Antibiotics # of Doses: 2 Antibiotics Time of Last Dose: 01/15/2019 13:00 Steroids Given: None Reason Steroids Not Administered: Not Applicable MEMBRANES Membranes Rupture Method: Spontaneous Rupture of Membranes: 01/15/2019 13:40 Length of Rupture (hr): 0.35 Amniotic Fluid Color: Light Meconium Amniotic Fluid Amount: Moderate Amniotic Fluid Odor: None STAGES OF LABOR Stage 1 hr: 10 Stage 1 min: 30 Stage 2 hr: 0 Stage 2 min: 1 Stage 3 hr: 0 Stage 3 min: 4 Total Time in Labor hr: 10 Total Time in Labor min: 35 VAGINAL DELIVERY Episiotomy: None Laceration Extension: First Degree Laceration Type: Perineal Laceration Repair: Yes Initial Vag Sponge Count: 10 Final Vag Sponge Count: 10 Initial Vag Sharps Count: 2 Final Vag Sharps Count: 2 Sponge Count Correct: Yes; Vaginal Sweep Performed Sharps Count Correct: Yes BABY A INFORMATION Infant Delivery Date/Time: 01/15/2019 14:01 Method of Delivery: Vaginal Born in Route : No : N/A Forceps: N/A Vacuum Extraction: N/A Shoulder Dystocia : No SHOULDER DYSTOCIA BABY A Infant Delivery Date/Time: 01/15/2019 14:01 PRESENTATION/POSITION BABY A Presentation: Cephalic Cephalic Presentation: Vertex Vertex Position: Left Occipital Anterior Breech Presentation: N/A PLACENTA INFORMATION BABY A Placenta Delivery Time : 01/15/2019 14:05 Placenta Method of Delivery: Spontaneous Placenta Status: Delivered SCORES BABY A Heart Rate 1 min: >100 bpm Resp Effort 1 min: Good Cry Reflex Irritability 1 min: Cough/Sneeze/Pulls Away Muscle Tone 1 min: Active Motion Color 1 min: Body [place], Extremit Blue Resuscitation Effort 1 min: Tactile Stimulation SCORE 1 MIN: 9 Heart Rate 5 min: >100 bpm Resp Effort 5 min: Good Cry Reflex Irritability 5 min: Cough/Sneeze/Pulls Away Muscle Tone 5 min: Active Motion Color 5 min: Body [place], Extremit Blue Resuscitation Effort 5 min: Tactile Stimulation SCORE 5 MIN: 9 INFORMATION BABY A Gestational Age at Delivery: 39.1 Gestational Status: Full Term- 39- 40.6 Weeks Infant Outcome : Liveborn, with signs of life Infant Condition : Stable Infant Sex: Male IDENTIFICATION/MEDS BABY A ID Band Number: [id number] ID Band Location: Right Leg; Left Arm Sensor Applied: Yes Sensor Number: [id number] Sensor Location : Cord Clamp Vitamin K Given : Aquamephyton 0.5 mg IM Erythromycin Given: Given Both Eyes WEIGHT/LENGTH BABY A Infant Birthweight (gm): 3760 Weight (lb): 8 Infant Weight (oz): 5 Length (in): 20.50 Length (cm): 52.07 CORD INFORMATION BABY A No. Cord Vessels: 3 Nuchal Cord : N/A Cord Blood Taken: No Suction: Mouth; Nose ASSESSMENT BABY A Infant Complications: Meconium Physical Findings at Delivery: Within Normal Limits Infant Respirations: Appears Normal Otolaryngology Nurse/ALS Called : No Transferred To: Remains with Mother
== END 2019-01-17 18:10 | disposition home or self-care (01) | DRG 807 ==
LOC: OBT 05:57 → L-D 05:58 → OBT 08:24 → L-D 08:27 → PP1 17:21
PROVIDERS: ADMIT Obstetrics & Gynecology; ATTEND Obstetrics & Gynecology
PROC: 10E0XZZ Delivery of Products of Conception, External Approach (ICD-10-PCS; principal; 2019-01-15)
PROC: 0HQ9XZZ Repair Perineum Skin, External Approach (ICD-10-PCS; 2019-01-15)
DX: O70.0 First degree perineal laceration during delivery (principal); Z37.0 Single live birth; Z3A.39 39 weeks gestation of pregnancy; O99.820 Streptococcus B carrier state complicating pregnancy
CPT/HCPCS: 85025; 85610; 85730; 86592; 86703; 86850; 86900; 86901; G0463; J0290; J0595; J2590; J7120